=== PATIENT | male | born 1940 | race Caucasian/White ===

== ENCOUNTER → 2016-12-19 | Outpatient (CLI) | payer MEDICARE, BC | LOC: MW.CHFP 11:41 | PROVIDERS: ATTEND Emergency Medicine | DX: E87.5 Hyperkalemia (principal); E11.9 Type 2 diabetes mellitus without complications; I10 Essential (primary) hypertension; E78.00 Pure hypercholesterolemia, unspecified | CPT/HCPCS: 36415; 84132; 99214 ==

== ENCOUNTER 2024-08-08 13:18 | Emergency (ER) | payer MEDICARE, BC ==
[2024-08-08 13:50] VITALS: BP 137/78; PULSE 81
[2024-08-08] MEDS: Oxymetazoline 0.05% Nasal Spray 30 ML Bottle NAS ONE (13:51)
== END 2024-08-08 14:36 | disposition home or self-care (01) ==
LOC: MW.ED 13:18
DX: R04.0 Epistaxis (principal); I10 Essential (primary) hypertension; E78.00 Pure hypercholesterolemia, unspecified; K21.9 Gastro-esophageal reflux disease without esophagitis; E11.9 Type 2 diabetes mellitus without complications; Z79.899 Other long term (current) drug therapy; Z79.82 Long term (current) use of aspirin; Z79.84 Long term (current) use of oral hypoglycemic drugs; Z75.8 Other problems related to medical facilities and other health care
CPT/HCPCS: 99283; A9270